=== PATIENT | female | born 1995 | race American Indian/Alaskan Native ===

== ENCOUNTER 2018-09-13 10:34 | Emergency (ER) | payer SELFPAY ==
--- NOTE | 2018-09-13 12:29 | Emergency Department Report ---
ED Headache HPI - General Chief Complaint: Headache Stated Complaint: MIGRAINE/BLURRED VISION Time Seen by Provider: 09/13/18 12:19 - History of Present Illness Initial Comments: Ms. Cannon is a 22 yo female who presents with blurry vision on the left eye with right temporal headache, maxillary pressure, nasal congestion and nasal irritation. Concerned for potential hypertension. Timing/Duration: 24 hours Quality: moderate Recent Head Trauma: no recent headache/trauma Associated Symptoms: facial pain, nasal drainage Allergies/Adverse Reactions: Allergies No Known Allergies Allergy (Unverified 09/13/18 10:38) Home Medications: Ambulatory Orders Amoxicillin 500 mg PO TID 7 Days #21 capsule 09/13/18 Loratadine 10 mg PO DAILY 14 Days #14 tablet 09/13/18 ED Review of Systems ROS: Stated complaint: MIGRAINE/BLURRED VISION Other details as noted in HPI Comment: All other systems reviewed and negative Constitutional: denies: fever, malaise Respiratory: denies: cough Cardiovascular: denies: chest pain ED Past Medical Hx - Past Medical History Previous Medical History?: No - Surgical History Past Surgical History?: No - Social History Smoking Status: Current Every Day Smoker Substance Use Type: None - Medications Home Medications: Home Medications Medication Instructions Recorded Confirmed Last Taken Type Amoxicillin 500 mg PO TID 7 Days #21 capsule 09/13/18 Unknown Rx Loratadine 10 mg PO DAILY 14 Days #14 tablet 09/13/18 Unknown Rx ED Physical Exam - General Limitations: No Limitations General appearance: alert, in no apparent distress - Head Head exam: Present: atraumatic, normocephalic - Eye Eye exam: Present: normal appearance. Absent: scleral icterus, conjunctival injection - ENT ENT exam: Present: mucous membranes moist - Neck Neck exam: Present: normal inspection, full ROM - Respiratory Respiratory exam: Present: normal lung sounds bilaterally. Absent: respiratory distress, wheezes, rales, rhonchi - Cardiovascular Cardiovascular Exam: Present: regular rate, normal rhythm. Absent: systolic murmur, diastolic murmur, rubs, gallop - GI/Abdominal GI/Abdominal exam: Present: soft, normal bowel sounds. Absent: distended, tenderness, guarding, rebound - Extremities Exam Extremities exam: Present: normal inspection - Back Exam Back exam: Present: normal inspection - Neurological Exam Neurological exam: Present: alert, oriented X3 - Psychiatric Psychiatric exam: Present: normal affect, normal mood - Skin Skin exam: Present: warm, dry, intact, normal color. Absent: rash ED Course Vital Signs 09/13/18 10:58 Temperature 97.6 F Pulse Rate 75 Respiratory 20 Rate Blood Pressure 124/91 O2 Sat by Pulse 99 Oximetry ED Medical Decision Making - Medical Decision Making Ms. Cannon presents with left eye blurry vision, headache, nasal congestion. Only mildly elevated DBP 91 mm Hg DDX: Acute sinusitis, atypical migraine, pseudotumor cerebri I do not suspect CVA on this presentation. Strongly recommended urgent eye exam. Also recommended evaluation by neurologist. Prescribed amoxicillin and loratadine. Although Augmentin is first line therapy for acute sinusitis, patient is uninsured. Critical care attestation.: If time is entered above; I have spent that time in minutes in the direct care of this critically ill patient, excluding procedure time. ED Disposition Clinical Impression: Acute headache, Blurred vision, left eye Disposition: [id number] TO HOME OR SELFCARE Is pt being admited?: No Does the pt Need Aspirin: No Condition: Stable Additional Instructions: Please have an eye exam today or tomorrow. Please see a neurologist. Prescriptions: Amoxicillin 500 mg PO TID 7 Days #21 capsule Loratadine 10 mg PO DAILY 14 Days #14 tablet Referrals: [facility] EDUARDOANKIT RICHARDS MD [Primary Care Provider] - 3-5 Days TINO PIERRE MD [Staff Physician] - 3-5 Days SYED BOB MD [Staff Physician] - 3-5 Days Forms: Work/School Release Form(ED)
[2018-09-13 12:40] VITALS: BP 124/70
== END 2018-09-13 12:37 | disposition home or self-care (01) ==
LOC: ED 10:34
DX: R51 Headache (principal); H53.8 Other visual disturbances; F17.200 Nicotine dependence, unspecified, uncomplicated
CPT/HCPCS: 99282